=== PATIENT | male | born 1960 | race Hispanic/Latino ===

== ENCOUNTER → 2023-12-12 | Day surgery (SDC) | payer OTHER ==
[2023-11-30 10:03] LABS: BASOPHILS % 0.4 % (0.0-1.0); EOSINOPHILS # (AUTO) 0.2 (0.0-0.4); EOSINOPHILS % 2.9 % (0.0-6.0); HEMATOCRIT 36.3 % (38.2-49.6); LYMPHOCYTES # (AUTO) 1.1 (1.0-3.2); LYMPHOCYTES % 21.2 % (18.0-39.1); MEAN CORPUSCULAR HEMOGLOBIN 30.8 pg (28-32); MEAN CORPUSCULAR HGB CONC 33.1 g/dL (31-35); MEAN CORPUSCULAR VOLUME 93.3 fL (81-99); MONOCYTES # (AUTO) 0.5 (0.2-0.8); MONOCYTES % 8.8 % (4.4-11.3); NEUTROPHILS # (AUTO) 3.5 (2.1-6.9); NEUTROPHILS % 66.5 % (38.7-80.0); PLATELET COUNT 54 x10e3/uL (140-360); RED BLOOD COUNT 3.89 x10e6/uL (4.3-5.7); RED CELL DISTRIBUTION WIDTH 15.1 % (11.7-14.4)
[2023-11-30 10:25] LABS: ALBUMIN 3.8 g/dL (3.5-5.0); ALBUMIN/GLOBULIN RATIO 1.4 (0.8-2.0); ANION GAP 10.7 mmol/L (8-16); CREATININE, SERUM 0.87 mg/dL (0.72-1.25); POTASSIUM 4.7 mmol/L (3.5-5.1); TOTAL PROTEIN 6.5 g/dL (6.5-8.1)
[~2023-12-12] MED LIST: ACETAMINOPHEN 1000 MG/100 ML IV ONE; BUPIVACAINE 0.5%/EPI 30 ML SDV INJ ONE; DEXAMETHASONE SOD PHOS INJ 4 MG/ML SDV ONE; EPHEDRINE SULFATE INJ 50 MG/ML VIAL ONE; FENTANYL CITRATE/PF 100MCG/2 ML INJ ONE; HYDROCODONE/APAP 7.5MG-325MG 1 EA TAB ONE; LIDOCAINE HCL 2% LOCAL INJ 5 ML SDV VIAL INJ ONE; METOPROLOL SUCC50 MG PO; ONDANSETRON HCL INJ 2MG/ML 2ML 2 MG/ML VIAL ONE; PROPOFOL IV EMULSION 10 MG/ML 20 ML VIAL ONE; ROCURONIUM BROMIDE 10 MG/ML 5ML VIAL IV ONE; SEVOFLURANE INHAL SOLN 250 ML PEN BTL ONE; SUGAMMADEX SODIUM 200 MG/2 ML VIAL IV ONE
[2023-12-12] MEDS: LACTATED RINGER'S 1,000 ML ONE (09:33)
[2023-12-12 12:11] VITALS: TEMP 97.8
[2023-12-12] MEDS: HYDROCODONE/APAP 7.5MG-325MG 1 EA TAB PO ONE (12:48)
[2023-12-12 13:15] VITALS: BP 141/70; PULSE 61; RESP 15; O2SAT 98
== END | disposition home or self-care (01) ==
LOC: OR 07:51
PROVIDERS: ATTEND Surgery
DX: K42.0 Umbilical hernia with obstruction, without gangrene (principal); I10 Essential (primary) hypertension; D69.6 Thrombocytopenia, unspecified; R00.0 Tachycardia, unspecified; D68.9 Coagulation defect, unspecified; Z01.810 Encounter for preprocedural cardiovascular examination; Z01.812 Encounter for preprocedural laboratory examination; Z01.818 Encounter for other preprocedural examination; Z79.899 Other long term (current) drug therapy
CPT/HCPCS: 36415; 49594; 71046; 80053; 85025; 93005; C1781; J7121; J1100; J2001; J2405

== ENCOUNTER 2024-04-06 10:28 | Inpatient (IN) | payer OTHER ==
[2024-04-04 10:28] LABS: BASOPHILS % 0.4 % (0.0-1.0); EOSINOPHILS # (AUTO) 0.2 (0.0-0.4); EOSINOPHILS % 2.2 % (0.0-6.0); HEMATOCRIT 37.5 % (38.2-49.6); HEMOGLOBIN 11.9 g/dL (14.0-18.0); LYMPHOCYTES # (AUTO) 0.5 (1.0-3.2); LYMPHOCYTES % 7.2 % (18.0-39.1); MEAN CORPUSCULAR HEMOGLOBIN 30.4 pg (28-32); MEAN CORPUSCULAR HGB CONC 31.7 g/dL (31-35); MEAN CORPUSCULAR VOLUME 95.9 fL (81-99); MONOCYTES # (AUTO) 0.3 (0.2-0.8); MONOCYTES % 4.5 % (4.4-11.3); NEUTROPHILS # (AUTO) 5.9 (2.1-6.9); NEUTROPHILS % 85.3 % (38.7-80.0); PLATELET COUNT 65 x10e3/uL (140-360); RED BLOOD COUNT 3.91 x10e6/uL (4.3-5.7); RED CELL DISTRIBUTION WIDTH 14.9 % (11.7-14.4); WHITE BLOOD COUNT 6.93 x10e3/uL (4.8-10.8)
[2024-04-04 10:55] LABS: ANION GAP 14.2 mmol/L (8-16); CALCIUM 9.2 mg/dL (8.4-10.2); CREATININE, SERUM 0.89 mg/dL (0.72-1.25); POTASSIUM 4.2 mmol/L (3.5-5.1)
[~2024-04-06] VITALS: Ht 177.8 cm; Wt 81.6 kg
[~2024-04-06 10:28] MED LIST changes: -ACETAMINOPHEN 1000 MG/100 ML IV ONE; -BUPIVACAINE 0.5%/EPI 30 ML SDV INJ ONE; -DEXAMETHASONE SOD PHOS INJ 4 MG/ML SDV ONE; -EPHEDRINE SULFATE INJ 50 MG/ML VIAL ONE; -FENTANYL CITRATE/PF 100MCG/2 ML INJ ONE; -HYDROCODONE/APAP 7.5MG-325MG 1 EA TAB ONE; -LIDOCAINE HCL 2% LOCAL INJ 5 ML SDV VIAL INJ ONE; -ONDANSETRON HCL INJ 2MG/ML 2ML 2 MG/ML VIAL ONE; -PROPOFOL IV EMULSION 10 MG/ML 20 ML VIAL ONE; -ROCURONIUM BROMIDE 10 MG/ML 5ML VIAL IV ONE; -SEVOFLURANE INHAL SOLN 250 ML PEN BTL ONE; -SUGAMMADEX SODIUM 200 MG/2 ML VIAL IV ONE
[2024-04-06] MEDS: LACTATED RINGER'S 1,000 ML ONE (11:11)
[2024-04-06] MEDS ORDERED: ONDANSETRON HCL INJ 2MG/ML 2ML 2 MG/ML VIAL ONE ×2 (11:56→15:10)
[2024-04-06] MEDS ORDERED: PROPOFOL IV EMULSION 10 MG/ML 20 ML VIAL ONE ×2 (11:56→15:11)
[2024-04-06] MEDS ORDERED: LIDOCAINE HCL 2% LOCAL INJ 5 ML SDV VIAL INJ ONE (11:56)
[2024-04-06] MEDS ORDERED: DEXAMETHASONE SOD PHOS INJ 4 MG/ML SDV ONE ×2 (11:57→15:09)
[2024-04-06] MEDS ORDERED: FENTANYL CITRATE/PF 100MCG/2 ML INJ ONE ×2 (11:58→14:48)
[2024-04-06] MEDS ORDERED: LIDOCAINE HCL 1% LOCAL INJ 20 ML VIAL ONE (12:46)
[2024-04-06] MEDS ORDERED: BUPIVACAINE 0.5%/EPI 30 ML SDV INJ ONE (12:46)
[2024-04-06] MEDS ORDERED: LIDOCAINE HCL 2% LOCAL 20 ML VIAL ONE (15:11)
[2024-04-06] MEDS ORDERED: SUCCINYLCHOLINE CHLORIDE 20 MG/ML 10ML VIAL ONE (15:11)
[2024-04-06] MEDS ORDERED: Morphine 10mg syringe 10 MG/ML INJ ONE (15:18)
[2024-04-06] MEDS ORDERED: GLYCOPYRROLATE INJ 0.2 MG/ML VIAL ONE (15:35)
[2024-04-06] MEDS ORDERED: EPHEDRINE SULFATE INJ 50 MG/ML VIAL ONE (15:35)
[2024-04-06] MEDS ORDERED: LIDOCAINE JELLY 2% 10ML URO-JET ONE (16:30)
[2024-04-06] MEDS ORDERED: ONDANSETRON HCL INJ 2MG/ML 2ML 2 MG/ML VIAL IV PRN (16:45)
[2024-04-06] MEDS ORDERED: ACETAMINOPHEN 1000 MG/100 ML IV PRN (16:45)
[2024-04-06] MEDS: HYDROMORPHONE 0.2MG/ML-SOD CHL 30ML PCA SYRINGE IV PRN (17:10)
[2024-04-06] MEDS: SODIUM CHLORIDE 0.9% 1000ML 1,000 ML IV SCH (17:45)
[2024-04-06 18:01] VITALS: BP 139/83; PULSE 74; RESP 20; TEMP 97.5; O2SAT 98
[2024-04-06 19:25] VITALS: BP 139/83; PULSE 74; RESP 20; TEMP 97.5; O2SAT 98
[2024-04-06 19:38] VITALS: BP 139/83; PULSE 74; RESP 20; TEMP 97.5; O2SAT 98
[2024-04-06 20:00] VITALS: BP 140/88; PULSE 70; RESP 18; TEMP 97.7; O2SAT 92
[2024-04-06] MEDS: LEVOFLOXACIN 500MG/D5W 100ML 100 ML IV SCH (20:40)
[2024-04-06] MEDS: METOPROLOL SUCCINATE 50 MG TAB XL PO SCH (20:40)
[2024-04-06 21:00] VITALS: BP 140/88; PULSE 70; RESP 18; TEMP 97.7; O2SAT 92
[2024-04-07] VITALS (7 sets, daily range): BP systolic 129–147; BP diastolic 80–99; PULSE 65–70; RESP 17–18; TEMP 97.9–99.1; O2SAT 93–95
[2024-04-07 06:05] LABS: BASOPHILS % 0.1 % (0.0-1.0); EOSINOPHILS % 0.5 % (0.0-6.0); HEMATOCRIT 31.1 % (38.2-49.6); HEMOGLOBIN 10.1 g/dL (14.0-18.0); LYMPHOCYTES # (AUTO) 0.6 (1.0-3.2); LYMPHOCYTES % 7.3 % (18.0-39.1); MEAN CORPUSCULAR HEMOGLOBIN 30.3 pg (28-32); MEAN CORPUSCULAR HGB CONC 32.5 g/dL (31-35); MEAN CORPUSCULAR VOLUME 93.4 fL (81-99); MONOCYTES # (AUTO) 0.6 (0.2-0.8); MONOCYTES % 6.9 % (4.4-11.3); NEUTROPHILS # (AUTO) 7.2 (2.1-6.9); NEUTROPHILS % 84.7 % (38.7-80.0); PLATELET COUNT 67 x10e3/uL (140-360); RED BLOOD COUNT 3.33 x10e6/uL (4.3-5.7); RED CELL DISTRIBUTION WIDTH 14.7 % (11.7-14.4); WHITE BLOOD COUNT 8.51 x10e3/uL (4.8-10.8)
[2024-04-07 06:19] LABS: ANION GAP 11.3 mmol/L (8-16); CREATININE, SERUM 0.87 mg/dL (0.72-1.25); POTASSIUM 4.3 mmol/L (3.5-5.1)
[2024-04-07] MEDS ORDERED: HYDROMORPHONE 1MG/1ML INJ IV PRN (18:30)
[2024-04-08] VITALS: BP 136/91; PULSE 70; RESP 17; TEMP 98.8; O2SAT 94
[2024-04-08] MEDS: HYDROCODONE/APAP 7.5MG-325MG 1 EA TAB PO PRN (00:37)
[2024-04-08 04:00] VITALS: BP 119/78; PULSE 67; RESP 17; TEMP 98.7; O2SAT 93
[2024-04-08 07:34] LABS: BASOPHILS % 0.6 % (0.0-1.0); EOSINOPHILS # (AUTO) 0.2 (0.0-0.4); EOSINOPHILS % 3.9 % (0.0-6.0); HEMATOCRIT 29.7 % (38.2-49.6); HEMOGLOBIN 9.6 g/dL (14.0-18.0); LYMPHOCYTES # (AUTO) 0.8 (1.0-3.2); LYMPHOCYTES % 16.8 % (18.0-39.1); MEAN CORPUSCULAR HGB CONC 32.3 g/dL (31-35); MEAN CORPUSCULAR VOLUME 95.8 fL (81-99); MONOCYTES # (AUTO) 0.4 (0.2-0.8); MONOCYTES % 8.8 % (4.4-11.3); NEUTROPHILS # (AUTO) 3.4 (2.1-6.9); NEUTROPHILS % 69.7 % (38.7-80.0); RED CELL DISTRIBUTION WIDTH 14.6 % (11.7-14.4); WHITE BLOOD COUNT 4.88 x10e3/uL (4.8-10.8)
[2024-04-08 07:38] LABS: PLATELET COUNT 51 x10e3/uL (140-360)
[2024-04-08 07:50] LABS: ANION GAP 9.9 mmol/L (8-16); CALCIUM 8.1 mg/dL (8.4-10.2); CREATININE, SERUM 0.89 mg/dL (0.72-1.25); POTASSIUM 3.9 mmol/L (3.5-5.1)
[2024-04-08 08:00] VITALS: BP 135/98; PULSE 62; RESP 17; TEMP 98.6; O2SAT 95
[2024-04-08 08:30] VITALS: BP 135/98; PULSE 62; RESP 17; TEMP 98.6; O2SAT 95
== END 2024-04-08 10:41 | disposition home or self-care (01) | DRG 349 ==
LOC: OR 10:28 → MED/SURG 17:03 → UNDODISIN 04-08 10:41
PROVIDERS: ADMIT Surgery; ATTEND Surgery
PROC: 0DQQXZZ Repair Anus, External Approach (ICD-10-PCS; 2024-04-06)
PROC: 06BY0ZC Excision of Hemorrhoidal Plexus, Open Approach (ICD-10-PCS; principal; 2024-04-06 14:50)
DX: K64.5 Perianal venous thrombosis (principal); R33.9 Retention of urine, unspecified; D69.6 Thrombocytopenia, unspecified; D64.9 Anemia, unspecified; I10 Essential (primary) hypertension; Z79.899 Other long term (current) drug therapy
CPT/HCPCS: 36415; 71046; 80048; 85025; 88304; 93005; J0330; J1100; J1956; J2003; J2270; J2405; J7030

== ENCOUNTER → 2024-05-09 | Outpatient (REF) | payer OTHER ==
[2024-05-09 13:56] LABS: BASOPHILS % 0.3 % (0.0-1.0); EOSINOPHILS # (AUTO) 0.1 (0.0-0.4); HEMATOCRIT 35.5 % (38.2-49.6); LYMPHOCYTES # (AUTO) 0.7 (1.0-3.2); LYMPHOCYTES % 18.1 % (18.0-39.1); MEAN CORPUSCULAR VOLUME 96.7 fL (81-99); MONOCYTES # (AUTO) 0.3 (0.2-0.8); MONOCYTES % 7.3 % (4.4-11.3); NEUTROPHILS # (AUTO) 2.6 (2.1-6.9); PLATELET COUNT 58 x10e3/uL (140-360); RED BLOOD COUNT 3.67 x10e6/uL (4.3-5.7); RED CELL DISTRIBUTION WIDTH 14.7 % (11.7-14.4); WHITE BLOOD COUNT 3.71 x10e3/uL (4.8-10.8)
[2024-05-09 14:14] LABS: ALBUMIN 3.7 g/dL (3.5-5.0); ALBUMIN/GLOBULIN RATIO 1.2 (0.8-2.0); ANION GAP 12.8 mmol/L (8-16); BILIRUBIN,TOTAL 1.6 mg/dL (0.2-1.2); CREATININE, SERUM 0.85 mg/dL (0.72-1.25); POTASSIUM 3.8 mmol/L (3.5-5.1); TOTAL PROTEIN 6.9 g/dL (6.5-8.1)
[2024-05-09 14:34] LABS: FERRITIN 91.01 ng/mL (21.81-274.66); THYROID STIMULATING HORMONE 2.348 uIU/mL (0.350-4.940)
== END ==
LOC: LAB 13:07
PROVIDERS: ATTEND Internal Medicine
DX: D64.9 Anemia, unspecified (principal); R63.4 Abnormal weight loss
CPT/HCPCS: 36415; 80053; 82607; 82728; 83540; 84402; 84443; 84466; 85025

== ENCOUNTER → 2024-05-17 | Outpatient (REF) | payer OTHER ==
[~2024-05-17] MED LIST changes: +IOPAMIDOL 370 MG/ML 100 ML INFUS..BTL INJ ONE
[2024-05-17 14:22] LABS: CREATININE, SERUM 0.81 mg/dL (0.72-1.25)
== END ==
LOC: CT 13:50
PROVIDERS: ATTEND Internal Medicine
DX: R63.4 Abnormal weight loss (principal)
CPT/HCPCS: 36415; 71260; 74177; 82565; 84520; Q9967

== ENCOUNTER → 2024-05-25 | Outpatient (REF) | payer OTHER ==
[~2024-05-25] MED LIST changes: -IOPAMIDOL 370 MG/ML 100 ML INFUS..BTL INJ ONE
[2024-05-25 09:31] LABS: INR 1.12; PROTHROMBIN TIME 15.1 seconds (11.9-14.5)
[2024-05-26 06:37] LABS: ALPHA FETO-PROTEIN 1.8 ng/mL (0.0-8.4)
[2024-05-27 12:01] LABS: ALPHA-1-ANTITRYPSIN 158 mg/dL (101-187)
[2024-05-28 16:44] LABS: ANTI-MITOCHONDRIAL AB SCREEN <20.0 Units (0.0-20.0)
== END ==
LOC: LAB 08:56
PROVIDERS: ATTEND Internal Medicine
DX: R18.8 Other ascites (principal); K74.60 Unspecified cirrhosis of liver
CPT/HCPCS: 36415; 82103; 82105; 82140; 82390; 84466; 85610; 86255; 86256

== ENCOUNTER 2024-06-29 07:54 | Inpatient (IN) | payer OTHER ==
[~2024-06-29] VITALS: Ht 177.8 cm; Wt 81.6 kg
[2024-06-29] VITALS (8 sets, daily range): BP systolic 126–136; BP diastolic 84–86; PULSE 82–87; RESP 18–21; TEMP 97.4–98.8; O2SAT 95–100
[2024-06-29 08:25] LABS: BASOPHILS % 0.2 % (0.0-1.0); EOSINOPHILS # (AUTO) 0.1 (0.0-0.4); EOSINOPHILS % 1.6 % (0.0-6.0); HEMATOCRIT 31.2 % (38.2-49.6); HEMOGLOBIN 10.4 g/dL (14.0-18.0); LYMPHOCYTES # (AUTO) 0.8 (1.0-3.2); LYMPHOCYTES % 9.2 % (18.0-39.1); MEAN CORPUSCULAR HEMOGLOBIN 30.7 pg (28-32); MEAN CORPUSCULAR HGB CONC 33.3 g/dL (31-35); MONOCYTES # (AUTO) 0.4 (0.2-0.8); MONOCYTES % 5.3 % (4.4-11.3); NEUTROPHILS # (AUTO) 6.9 (2.1-6.9); NEUTROPHILS % 83.1 % (38.7-80.0); PLATELET COUNT 80 x10e3/uL (140-360); RED BLOOD COUNT 3.39 x10e6/uL (4.3-5.7); RED CELL DISTRIBUTION WIDTH 15.6 % (11.7-14.4); WHITE BLOOD COUNT 8.28 x10e3/uL (4.8-10.8)
[2024-06-29 08:39] LABS: ALBUMIN 3.1 g/dL (3.5-5.0); BILIRUBIN,TOTAL 1.8 mg/dL (0.2-1.2); CALCIUM 8.4 mg/dL (8.4-10.2); CREATININE, SERUM 0.98 mg/dL (0.72-1.25); MAGNESIUM 1.7 MG/DL (1.3-2.1); TOTAL PROTEIN 6.3 g/dL (6.5-8.1)
[2024-06-29 08:40] LABS: INR 1.2; PROTHROMBIN TIME 15.9 seconds (11.9-14.5)
[2024-06-29 08:41] LABS: PARTIAL THROMBOPLASTIN TIME 34.3 seconds (23.8-35.5)
[2024-06-29 08:44] LABS: TROPONIN I 0.006 ng/mL (0-0.300)
[2024-06-29 08:54] LABS: B-TYPE NATRIURETIC PEPTIDE2 80.9 pg/mL (0-100)
[2024-06-29 08:54] LABS: BILIRUBIN,URINE NEGATIVE (NEGATIVE); CLARITY,URINE CLEAR (CLEAR); COLOR,URINE YELLOW (YELLOW); GLUCOSE, URINE NEGATIVE (NEGATIVE); KETONES,URINE 2+ (NEGATIVE); LEUKOCYTE ESTERASE ,URINE NEGATIVE (NEGATIVE); NITRITE,URINE NEGATIVE (NEGATIVE); PH,URINE 6 (5 - 7); PROTEIN,URINE DIPSTICK 1+ (NEGATIVE); URINE UROBILINOGEN 1 mg/dL (0.2 - 1)
[2024-06-29] MEDS: ONDANSETRON HCL INJ 2MG/ML 2ML 2 MG/ML VIAL IV STA (08:56)
[2024-06-29] MEDS: SODIUM CHLORIDE 0.9% 1000ML 1,000 ML IV STA (08:57)
[2024-06-29 09:15] LABS: BACTERIA,URINE MODERATE /HPF; EPITHELIAL CELLS,URINE FEW /LPF; RBC,URINE 0-5 /HPF (0-5); WBC,URINE (MAN) 21-50 /HPF (0-5)
[2024-06-29] MEDS ORDERED: ONDANSETRON HCL INJ 2MG/ML 2ML 2 MG/ML VIAL IV PRN (10:15)
[2024-06-29] MEDS: Vancomycin IV 1 GM in SODIUM CHLORIDE 0.9% 250ML 250 ML IV SCH (10:17)
[2024-06-29] MEDS ORDERED: SPIRONOLACTONE25 MG PO (14:33)
[2024-06-29] MEDS ORDERED: ALBUMIN 25% 12.5GM 50ML 100 ML IV ONE (17:44)
[2024-06-29 17:48] LABS: CORONAVIRUS COVID-19 AG NEGATIVE (NEGATIVE); INFLUENZA A AG NEGATIVE (NEGATIVE); INFLUENZA B AG NEGATIVE (NEGATIVE)
[2024-06-29 20:44] LABS: BODY FLUID APPEARANCE CLOUDY; BODY FLUID COLOR YELLOW; BODY FLUID TYPE PERITONEAL
[2024-06-29 20:47] LABS: RBC,BODY FLUID 5000 cells/uL; WBC,BODY FLUID 723 cells/uL
[2024-06-29] MEDS: METOPROLOL SUCCINATE 50 MG TAB XL PO SCH (21:20)
[2024-06-29 21:33] LABS: LYMPHOCYTES,BODY FLUID 50 %; MONO/MACROPHG,BODY FLUID 8 %; NEUTROPHILS,BODY FLUID 40 %; OTHER CELLS,BODY FLUID 2 %
[2024-06-29 21:34] LABS: TOTAL CELLS COUNTED (DIFF) 100
[2024-06-29] MEDS ORDERED: SODIUM CHLORIDE 0.9% 250ML 250 ML ONE (21:51)
[2024-06-29] MEDS: CARVEDILOL 12.5 MG TAB PO ONE (23:30)
[2024-06-30] VITALS (8 sets, daily range): BP systolic 111–130; BP diastolic 70–92; PULSE 64–75; RESP 18–21; TEMP 97.6–98.5; O2SAT 98–100
[2024-06-30 09:11] LABS: BASOPHILS % 0.6 % (0.0-1.0); EOSINOPHILS # (AUTO) 0.1 (0.0-0.4); EOSINOPHILS % 4.1 % (0.0-6.0); HEMATOCRIT 27.9 % (38.2-49.6); HEMOGLOBIN 9.2 g/dL (14.0-18.0); LYMPHOCYTES # (AUTO) 0.5 (1.0-3.2); LYMPHOCYTES % 14.9 % (18.0-39.1); MEAN CORPUSCULAR HEMOGLOBIN 30.5 pg (28-32); MEAN CORPUSCULAR VOLUME 92.4 fL (81-99); MONOCYTES # (AUTO) 0.3 (0.2-0.8); MONOCYTES % 8.2 % (4.4-11.3); NEUTROPHILS # (AUTO) 2.3 (2.1-6.9); NEUTROPHILS % 71.9 % (38.7-80.0); PLATELET COUNT 58 x10e3/uL (140-360); RED BLOOD COUNT 3.02 x10e6/uL (4.3-5.7); RED CELL DISTRIBUTION WIDTH 15.3 % (11.7-14.4); WHITE BLOOD COUNT 3.16 x10e3/uL (4.8-10.8)
[2024-06-30 09:53] LABS: TROPONIN I 0.011 ng/mL (0-0.300)
[2024-06-30 09:55] LABS: TOTAL IRON BINDING CAPACITY 221 ug/dL (261-478); TRANSFERRIN 158 mg/dL (174-364)
[2024-06-30] MEDS: CARVEDILOL 3.125 MG TAB PO SCH (09:55)
[2024-06-30 09:57] LABS: ALBUMIN 3.1 g/dL (3.5-5.0); ALBUMIN/GLOBULIN RATIO 1.2 (0.8-2.0); ANION GAP 13.8 mmol/L (8-16); BILIRUBIN,TOTAL 1.3 mg/dL (0.2-1.2); CALCIUM 8.3 mg/dL (8.4-10.2); CHOL/HDL RATIO 2.8 (3.9-4.7); CREATININE, SERUM 0.86 mg/dL (0.72-1.25); POTASSIUM 3.8 mmol/L (3.5-5.1); TOTAL PROTEIN 5.7 g/dL (6.5-8.1)
[2024-06-30 12:57] LABS: % IRON SATURATION 12 % (15-50); IRON 27 ug/dL (65-175)
[2024-07-01] VITALS (8 sets, daily range): BP systolic 103–146; BP diastolic 62–89; PULSE 69–83; RESP 17–20; TEMP 97.9–98.5; O2SAT 97–100
[2024-07-01 07:30] LABS: TROPONIN I 0.008 ng/mL (0-0.300)
[2024-07-01] MEDS: IRON SUCROSE 100 MG in SODIUM CHLORIDE 0.9% 100 ML IV SCH (09:24)
[2024-07-01] MEDS ORDERED: ALBUTEROL/IPRATROPIUM 3 ML NEB NEB PRN (22:00)
[2024-07-01] MEDS: SPIRONOLACTONE 25 MG TAB PO ONE (22:00)
[2024-07-01] MEDS ORDERED: BENZONATATE 100 MG CAP PO PRN (22:15)
[2024-07-01] MEDS: FUROSEMIDE 40 MG TAB PO ONE (22:23)
[2024-07-02] VITALS (10 sets, daily range): BP systolic 104–127; BP diastolic 62–74; PULSE 74–91; RESP 16–18; TEMP 97.5–98.8; O2SAT 95–100
[2024-07-02 06:00] LABS: BASOPHILS % 0.6 % (0.0-1.0); EOSINOPHILS # (AUTO) 0.3 (0.0-0.4); EOSINOPHILS % 8.6 % (0.0-6.0); HEMATOCRIT 29.8 % (38.2-49.6); HEMOGLOBIN 9.7 g/dL (14.0-18.0); LYMPHOCYTES # (AUTO) 0.7 (1.0-3.2); LYMPHOCYTES % 19.2 % (18.0-39.1); MEAN CORPUSCULAR HEMOGLOBIN 30.2 pg (28-32); MEAN CORPUSCULAR HGB CONC 32.6 g/dL (31-35); MEAN CORPUSCULAR VOLUME 92.8 fL (81-99); MONOCYTES # (AUTO) 0.3 (0.2-0.8); MONOCYTES % 9.5 % (4.4-11.3); NEUTROPHILS # (AUTO) 2.1 (2.1-6.9); NEUTROPHILS % 61.8 % (38.7-80.0); PLATELET COUNT 74 x10e3/uL (140-360); RED BLOOD COUNT 3.21 x10e6/uL (4.3-5.7); RED CELL DISTRIBUTION WIDTH 15.2 % (11.7-14.4); WHITE BLOOD COUNT 3.38 x10e3/uL (4.8-10.8)
[2024-07-02 06:45] LABS: ALBUMIN 2.8 g/dL (3.5-5.0); ALBUMIN/GLOBULIN RATIO 1.1 (0.8-2.0); ANION GAP 14.6 mmol/L (8-16); BILIRUBIN,TOTAL 0.7 mg/dL (0.2-1.2); CALCIUM 8.2 mg/dL (8.4-10.2); CREATININE, SERUM 0.85 mg/dL (0.72-1.25); POTASSIUM 3.6 mmol/L (3.5-5.1); TOTAL PROTEIN 5.3 g/dL (6.5-8.1)
[2024-07-02] MEDS: SPIRONOLACTONE 25 MG TAB PO SCH (08:47)
[2024-07-02] MEDS: FUROSEMIDE 40 MG TAB PO SCH (08:47)
[2024-07-02 16:23] LABS: ANION GAP 13.9 mmol/L (8-16); CALCIUM 8.2 mg/dL (8.4-10.2); CREATININE, SERUM 0.95 mg/dL (0.72-1.25); POTASSIUM 3.9 mmol/L (3.5-5.1)
[2024-07-03] VITALS (10 sets, daily range): BP systolic 100–126; BP diastolic 58–81; PULSE 78–98; RESP 16–20; TEMP 98.1–98.8; O2SAT 93–100
[2024-07-03] MEDS: CARVEDILOL 3.125 MG TAB PO SCH (09:36)
[2024-07-04] VITALS: BP 110/77; PULSE 79; RESP 17; TEMP 98.2; O2SAT 100
[2024-07-04 04:00] VITALS: BP 105/69; PULSE 75; RESP 16; TEMP 98.6; O2SAT 96
[2024-07-04] MEDS: SPIRONOLACTONE 25 MG TAB PO SCH (09:00)
[2024-07-04 10:47] LABS: HEPATITIS A ANTIBODY IGM (P) Negative; HEPATITIS B CORE IGM (P) Negative; HEPATITIS B SURFACE AG (P) Negative; HEPATITIS C ANTIBODY Non Reactive
== END 2024-07-04 12:37 | disposition left against medical advice (07) | DRG 432 ==
LOC: ER 08:00 → ERHOLD 10:15 → MED/SURG3 11:42
PROVIDERS: ADMIT Internal Medicine; ATTEND Internal Medicine
PROC: 0W9G3ZZ Drainage of Peritoneal Cavity, Percutaneous Approach (ICD-10-PCS; principal; 2024-06-29)
DX: K74.60 Unspecified cirrhosis of liver (principal); G93.41 Metabolic encephalopathy; I81 Portal vein thrombosis; D69.3 Immune thrombocytopenic purpura; N39.0 Urinary tract infection, site not specified; J90 Pleural effusion, not elsewhere classified; R18.8 Other ascites; K76.6 Portal hypertension; I85.10 Secondary esophageal varices without bleeding; R55 Syncope and collapse; E88.09 Other disorders of plasma-protein metabolism, not elsewhere classified; R16.1 Splenomegaly, not elsewhere classified; Z53.29 Procedure and treatment not carried out because of patient's decision for other reasons; S00.83XA Contusion of other part of head, initial encounter; W18.30XA Fall on same level, unspecified, initial encounter; Y92.002 Bathroom of unspecified non-institutional (private) residence as the place of occurrence of the external cause; I10 Essential (primary) hypertension; D72.819 Decreased white blood cell count, unspecified; D63.8 Anemia in other chronic diseases classified elsewhere; R05.9 Cough, unspecified; I95.9 Hypotension, unspecified; R68.81 Early satiety; R63.4 Abnormal weight loss; Z68.25 Body mass index [BMI] 25.0-25.9, adult; Z11.52 Encounter for screening for COVID-19; Z79.899 Other long term (current) drug therapy
CPT/HCPCS: 36415; 49083; 51700; 70450; 71045; 71260; 72125; 74177; 76700; 80048; 80053; 80061; 80202; 81001; 82040; 82105; 82140; 82378; 82550; 82607; 82746; 82948; 83540; 83735; 83880; 84157; 84466; 84484; 85025; 85045; 85610; 85730; 86850; 86900; 87040; 87070; 87086; 87205; 88112; 88305; 89051; 93005; 93306; 93880; 94799; 99284; C1729; J0696; J1756; J2405; J2470; J7030; J7050

== ENCOUNTER → 2024-07-25 | Outpatient (REF) | payer OTHER ==
[~2024-07-25] MED LIST changes: +ALBUMIN 25% 12.5GM 50ML 100 ML IV ONE; +SPIRONOLACTONE25 MG PO
== END ==
LOC: US 11:11
PROVIDERS: ATTEND Nurse Practitioner
DX: K70.31 Alcoholic cirrhosis of liver with ascites (principal)
CPT/HCPCS: 49083

== ENCOUNTER → 2024-08-10 | Outpatient (REF) | payer OTHER ==
[~2024-08-10] MED LIST changes: -ALBUMIN 25% 12.5GM 50ML 100 ML IV ONE
[2024-08-10 13:15] LABS: BASOPHILS % 0.5 % (0.0-1.0); EOSINOPHILS # (AUTO) 0.1 (0.0-0.4); EOSINOPHILS % 1.5 % (0.0-6.0); HEMATOCRIT 35.4 % (38.2-49.6); HEMOGLOBIN 11.7 g/dL (14.0-18.0); LYMPHOCYTES # (AUTO) 0.6 (1.0-3.2); LYMPHOCYTES % 14.6 % (18.0-39.1); MEAN CORPUSCULAR HEMOGLOBIN 30.3 pg (28-32); MEAN CORPUSCULAR HGB CONC 33.1 g/dL (31-35); MEAN CORPUSCULAR VOLUME 91.7 fL (81-99); MONOCYTES # (AUTO) 0.3 (0.2-0.8); MONOCYTES % 6.7 % (4.4-11.3); NEUTROPHILS # (AUTO) 3.1 (2.1-6.9); NEUTROPHILS % 76.5 % (38.7-80.0); PLATELET COUNT 71 x10e3/uL (140-360); RED BLOOD COUNT 3.86 x10e6/uL (4.3-5.7); RED CELL DISTRIBUTION WIDTH 16.1 % (11.7-14.4); WHITE BLOOD COUNT 4.04 x10e3/uL (4.8-10.8)
[2024-08-10 13:38] LABS: INR 1.06; PROTHROMBIN TIME 14.4 seconds (11.9-14.5)
[2024-08-10 13:39] LABS: PARTIAL THROMBOPLASTIN TIME 33.4 seconds (23.8-35.5)
== END ==
LOC: US 12:44
PROVIDERS: ATTEND Nurse Practitioner
DX: R18.8 Other ascites (principal); K74.60 Unspecified cirrhosis of liver
CPT/HCPCS: 36415; 49083; 85025; 85610; 85730

== ENCOUNTER → 2024-09-04 | Outpatient (REF) | payer OTHER ==
[~2024-09-04] MED LIST changes: +LIDOCAINE HCL 1% 30ML-PF VIAL ONE
== END ==
LOC: US 13:34
PROVIDERS: ATTEND Internal Medicine
DX: J90 Pleural effusion, not elsewhere classified (principal)
CPT/HCPCS: 32555; 71045; J2003; C1729

== ENCOUNTER → 2024-09-12 | Outpatient (REF) | payer OTHER ==
[~2024-09-12] MED LIST changes: -LIDOCAINE HCL 1% 30ML-PF VIAL ONE
[2024-09-12 13:46] LABS: BASOPHILS % 0.5 % (0.0-1.0); EOSINOPHILS # (AUTO) 0.3 (0.0-0.4); HEMATOCRIT 36.9 % (38.2-49.6); HEMOGLOBIN 11.9 g/dL (14.0-18.0); LYMPHOCYTES # (AUTO) 0.8 (1.0-3.2); LYMPHOCYTES % 12.1 % (18.0-39.1); MEAN CORPUSCULAR HEMOGLOBIN 30.1 pg (28-32); MEAN CORPUSCULAR HGB CONC 32.2 g/dL (31-35); MEAN CORPUSCULAR VOLUME 93.2 fL (81-99); MONOCYTES # (AUTO) 0.5 (0.2-0.8); MONOCYTES % 7.9 % (4.4-11.3); NEUTROPHILS # (AUTO) 4.9 (2.1-6.9); NEUTROPHILS % 75.2 % (38.7-80.0); PLATELET COUNT 86 x10e3/uL (140-360); RED BLOOD COUNT 3.96 x10e6/uL (4.3-5.7); RED CELL DISTRIBUTION WIDTH 15.6 % (11.7-14.4); WHITE BLOOD COUNT 6.45 x10e3/uL (4.8-10.8)
[2024-09-12 14:06] LABS: INR 1.18; PROTHROMBIN TIME 15.7 seconds (11.9-14.5)
[2024-09-12 14:07] LABS: PARTIAL THROMBOPLASTIN TIME 31.5 seconds (23.8-35.5)
== END ==
LOC: US 13:01
PROVIDERS: ATTEND Nurse Practitioner
DX: K70.31 Alcoholic cirrhosis of liver with ascites (principal)
CPT/HCPCS: 36415; 49083; 85025; 85610; 85730

== ENCOUNTER 2024-09-14 08:21 | Emergency (ER) | payer OTHER ==
[~2024-09-14] VITALS: Ht 177.8 cm; Wt 81.6 kg
[2024-09-14 08:40] LABS: BASOPHILS % 0.5 % (0.0-1.0); EOSINOPHILS # (AUTO) 0.3 (0.0-0.4); EOSINOPHILS % 5.9 % (0.0-6.0); HEMATOCRIT 35.2 % (38.2-49.6); HEMOGLOBIN 11.6 g/dL (14.0-18.0); LYMPHOCYTES # (AUTO) 0.9 (1.0-3.2); LYMPHOCYTES % 14.9 % (18.0-39.1); MEAN CORPUSCULAR HEMOGLOBIN 30.1 pg (28-32); MEAN CORPUSCULAR VOLUME 91.2 fL (81-99); MONOCYTES # (AUTO) 0.5 (0.2-0.8); MONOCYTES % 9.3 % (4.4-11.3); NEUTROPHILS % 69.2 % (38.7-80.0); PLATELET COUNT 80 x10e3/uL (140-360); RED BLOOD COUNT 3.86 x10e6/uL (4.3-5.7); RED CELL DISTRIBUTION WIDTH 15.7 % (11.7-14.4); WHITE BLOOD COUNT 5.78 x10e3/uL (4.8-10.8)
[2024-09-14 08:43] VITALS: PULSE 77; RESP 19
[2024-09-14 08:44] VITALS: TEMP 98
[2024-09-14] MEDS ORDERED: SODIUM CHLORIDE FLUSH 10 ML SYR IV PRN (08:45)
[2024-09-14 09:11] LABS: INR 1.07; PROTHROMBIN TIME 14.6 seconds (11.9-14.5)
[2024-09-14 09:12] LABS: PARTIAL THROMBOPLASTIN TIME 33.3 seconds (23.8-35.5)
[2024-09-14 09:20] LABS: ALBUMIN 3.4 g/dL (3.5-5.0); ALBUMIN/GLOBULIN RATIO 1.1 (0.8-2.0); ANION GAP 14.4 mmol/L (8-16); BILIRUBIN,TOTAL 1.2 mg/dL (0.2-1.2); CALCIUM 8.9 mg/dL (8.4-10.2); CREATININE, SERUM 0.93 mg/dL (0.72-1.25); POTASSIUM 4.4 mmol/L (3.5-5.1); TOTAL PROTEIN 6.4 g/dL (6.5-8.1)
[2024-09-14 09:26] LABS: TROPONIN I 0.007 ng/mL (0-0.300)
[2024-09-14 10:03] VITALS: BP 116/78; PULSE 84; RESP 18; TEMP 98.1; O2SAT 100
== END 2024-09-14 10:07 | disposition home or self-care (01) ==
LOC: ER 08:25
DX: R06.02 Shortness of breath (principal); J90 Pleural effusion, not elsewhere classified; J98.11 Atelectasis; I10 Essential (primary) hypertension; D64.9 Anemia, unspecified; K76.9 Liver disease, unspecified
CPT/HCPCS: 36415; 71045; 80053; 83880; 84484; 85025; 85610; 85730; 93005; 94760; 99284

== ENCOUNTER → 2024-09-28 | Outpatient (REF) | payer OTHER | LOC: US 08:21 | PROVIDERS: ATTEND Internal Medicine | DX: J90 Pleural effusion, not elsewhere classified (principal); J94.8 Other specified pleural conditions; K74.60 Unspecified cirrhosis of liver; K72.90 Hepatic failure, unspecified without coma | CPT/HCPCS: 32555 ==

== ENCOUNTER → 2024-09-28 | Outpatient (REF) | payer OTHER | LOC: US 08:21 | PROVIDERS: ATTEND Nurse Practitioner | DX: K70.31 Alcoholic cirrhosis of liver with ascites (principal) | CPT/HCPCS: 49083; 71045 ==

== ENCOUNTER → 2024-10-05 | Outpatient (REF) | payer OTHER | LOC: US 10:41 | PROVIDERS: ATTEND Internal Medicine | DX: J90 Pleural effusion, not elsewhere classified (principal) | CPT/HCPCS: 32555; 71045 ==

== ENCOUNTER → 2024-11-13 | Outpatient (REF) | payer OTHER | LOC: US 08:08 | PROVIDERS: ATTEND Nurse Practitioner | DX: K70.31 Alcoholic cirrhosis of liver with ascites (principal) | CPT/HCPCS: 76705 ==

== ENCOUNTER → 2024-11-13 | Outpatient (REF) | payer OTHER | LOC: US 08:05 | PROVIDERS: ATTEND Internal Medicine | DX: J90 Pleural effusion, not elsewhere classified (principal) | CPT/HCPCS: 32555; 71045; C1729 ==

== ENCOUNTER → 2024-11-16 | Outpatient (REF) | payer OTHER | LOC: US 07:59 | PROVIDERS: ATTEND Internal Medicine | DX: J90 Pleural effusion, not elsewhere classified (principal) | CPT/HCPCS: 32555; 71045 ==

== ENCOUNTER → 2024-11-28 | Outpatient (REF) | payer OTHER | LOC: US 08:19 | PROVIDERS: ATTEND Internal Medicine | DX: J90 Pleural effusion, not elsewhere classified (principal) | CPT/HCPCS: 32555; 71045; C1729 ==

== ENCOUNTER → 2024-11-28 | Outpatient (REF) | payer OTHER ==
[~2024-11-28] MED LIST changes: +LIDOCAINE HCL 1% 30ML-PF VIAL ONE
[2024-11-28 09:10] LABS: BASOPHILS % 0.6 % (0.0-1.0); EOSINOPHILS % 4.8 % (0.0-6.0); LYMPHOCYTES % 15.5 % (18.0-39.1); MONOCYTES % 7.6 % (4.4-11.3); NEUTROPHILS % 71.3 % (38.7-80.0); RED CELL DISTRIBUTION WIDTH 15.8 % (11.7-14.4)
[2024-11-28 10:10] LABS: INR 1.12
== END ==
LOC: US 08:22
PROVIDERS: ATTEND Nurse Practitioner
DX: R18.8 Other ascites (principal); K70.30 Alcoholic cirrhosis of liver without ascites
CPT/HCPCS: 36415; 76705; 85025; 85610; 85730; J2003

== ENCOUNTER → 2024-12-12 | Outpatient (REF) | payer OTHER ==
[~2024-12-12] MED LIST changes: -LIDOCAINE HCL 1% 30ML-PF VIAL ONE
== END ==
LOC: US 08:17
PROVIDERS: ATTEND Internal Medicine
DX: J90 Pleural effusion, not elsewhere classified (principal)
CPT/HCPCS: 32555; 71045; C1729

== ENCOUNTER → 2024-12-12 | Outpatient (REF) | payer OTHER | LOC: US 08:17 | PROVIDERS: ATTEND Nurse Practitioner | DX: K70.31 Alcoholic cirrhosis of liver with ascites (principal) | CPT/HCPCS: 76705 ==

== ENCOUNTER → 2024-12-24 | Outpatient (REF) | payer OTHER | LOC: US 08:16 | PROVIDERS: ATTEND Nurse Practitioner | DX: K70.31 Alcoholic cirrhosis of liver with ascites (principal) | CPT/HCPCS: 76705 ==

== ENCOUNTER → 2024-12-24 | Outpatient (REF) | payer OTHER | LOC: US 08:10 | PROVIDERS: ATTEND Internal Medicine | DX: J90 Pleural effusion, not elsewhere classified (principal) | CPT/HCPCS: 32555; 71045; C1729 ==

== ENCOUNTER → 2025-01-07 | Outpatient (REF) | payer OTHER | LOC: US 10:55 | PROVIDERS: ATTEND Internal Medicine | DX: J90 Pleural effusion, not elsewhere classified (principal) | CPT/HCPCS: 32555; 71045 ==

== ENCOUNTER → 2025-01-07 | Outpatient (REF) | payer OTHER | LOC: US 10:53 | PROVIDERS: ATTEND Nurse Practitioner | DX: K70.31 Alcoholic cirrhosis of liver with ascites (principal) | CPT/HCPCS: 76705 ==

== ENCOUNTER → 2025-01-10 | Outpatient (REF) | payer OTHER ==
[2025-01-10 11:30] LABS: BASOPHILS % 0.7 % (0.0-1.0); EOSINOPHILS % 4.5 % (0.0-6.0); LYMPHOCYTES % 13.7 % (18.0-39.1); MONOCYTES % 8.6 % (4.4-11.3); NEUTROPHILS % 72.4 % (38.7-80.0); RED CELL DISTRIBUTION WIDTH 17.7 % (11.7-14.4)
[2025-01-10 11:48] LABS: INR 1.09
== END ==
LOC: US 11:05
PROVIDERS: ATTEND Internal Medicine
DX: J90 Pleural effusion, not elsewhere classified (principal)
CPT/HCPCS: 32555; 36415; 71045; 85025; 85610; 85730

== ENCOUNTER → 2025-01-21 | Outpatient (REF) | payer OTHER | LOC: US 07:56 | PROVIDERS: ATTEND Internal Medicine | DX: J90 Pleural effusion, not elsewhere classified (principal) | CPT/HCPCS: 32555; 71045 ==

== ENCOUNTER → 2025-01-21 | Outpatient (REF) | payer OTHER | LOC: US 07:53 | PROVIDERS: ATTEND Nurse Practitioner | DX: K70.31 Alcoholic cirrhosis of liver with ascites (principal) | CPT/HCPCS: 76705 ==

== ENCOUNTER → 2025-01-23 | Outpatient (REF) | payer OTHER | LOC: US 10:55 | PROVIDERS: ATTEND Internal Medicine | DX: J90 Pleural effusion, not elsewhere classified (principal) | CPT/HCPCS: 32555; 71045 ==

== ENCOUNTER → 2025-02-04 | Outpatient (REF) | payer OTHER | LOC: US 07:58 | PROVIDERS: ATTEND Internal Medicine | DX: J90 Pleural effusion, not elsewhere classified (principal) | CPT/HCPCS: 32555; 71045 ==

== ENCOUNTER → 2025-02-19 | Outpatient (REF) | payer OTHER ==
[2025-02-19 12:29] LABS: BASOPHILS % 0.6 % (0.0-1.0); EOSINOPHILS % 3.2 % (0.0-6.0); LYMPHOCYTES % 15.0 % (18.0-39.1); MONOCYTES % 10.2 % (4.4-11.3); NEUTROPHILS % 70.8 % (38.7-80.0); RED CELL DISTRIBUTION WIDTH 18.4 % (11.7-14.4)
[2025-02-19 12:38] LABS: INR 1.28
== END ==
LOC: US 11:50
PROVIDERS: ATTEND Internal Medicine
DX: J90 Pleural effusion, not elsewhere classified (principal)
CPT/HCPCS: 32555; 36415; 71045; 85025; 85610; 85730

== ENCOUNTER → 2025-02-20 | Outpatient (REF) | payer OTHER | LOC: US 08:35 | PROVIDERS: ATTEND Internal Medicine | DX: J90 Pleural effusion, not elsewhere classified (principal) | CPT/HCPCS: 32555 ==

== ENCOUNTER → 2025-02-20 | Outpatient (REF) | payer OTHER | LOC: US 02-04 08:37 | PROVIDERS: ATTEND Nurse Practitioner | DX: K70.31 Alcoholic cirrhosis of liver with ascites (principal) | CPT/HCPCS: 71045; 76705 ==

== ENCOUNTER → 2025-03-08 | Outpatient (REF) | payer OTHER | LOC: US 08:04 | PROVIDERS: ATTEND Internal Medicine | DX: J90 Pleural effusion, not elsewhere classified (principal) | CPT/HCPCS: 32555; 71045; C1729 ==

== ENCOUNTER → 2025-03-19 | Outpatient (REF) | payer OTHER | LOC: US 08:22 | PROVIDERS: ATTEND Internal Medicine | DX: J90 Pleural effusion, not elsewhere classified (principal); K70.31 Alcoholic cirrhosis of liver with ascites | CPT/HCPCS: 32555; 71045; C1729 ==

== ENCOUNTER → 2025-03-19 | Outpatient (REF) | payer OTHER | LOC: US 08:21 | PROVIDERS: ATTEND Nurse Practitioner | DX: R18.8 Other ascites (principal) | CPT/HCPCS: 76705 ==